=== PATIENT | male | born 1950 | race Caucasian/White ===

== ENCOUNTER 2023-07-27 17:17 | Emergency (ER) | payer MEDICARE, OTHER, SELFPAY ==
[2023-07-27 17:19] VITALS: BP 144/59
[2023-07-27 17:47] LABS: % Basophils 1.3 % (0-2); % Eosinophils 2.6 % (0-6); % Immature Granulocytes 0.4 % (0-0.5); % Lymphocytes 34.3 % (20.5-51.1); % Monocytes 9.2 % (1.7-9.3); % Neutrophils 52.2 % (42.2-75.2); Absolute Basophils 0.1 10^3/uL (0-0.2); Absolute Eosinophils 0.2 10^3/uL (0-0.7); Absolute Lymphocytes 2.4 10^3/uL (1.2-3.4); Absolute Monocytes 0.7 10^3/uL (0.1-0.6); Absolute Neutrophils 3.7 10^3/uL (1.4-6.5); Hematocrit 41.8 % (39.0-52.0); Hemoglobin 15.1 g/dL (13.0-18.0); Mean Corp Hgb Conc. 36.1 g/dL (33.0-37.0); Mean Corpuscular Hgb 32.3 pg (27.0-31.0); Mean Corpuscular Volume 89.5 fL (80.0-94.0); Mean Platelet Volume 10.8 fL (7.4-10.4); Nucleated Red Blood Cells % 0 % (-); Platelet Count 166 10^3/uL (130-400); Red Blood Cell Count 4.67 10^6/uL (4.70-6.10); Red Cell Dist. Width 12.1 % (11.5-14.5)
[2023-07-27 18:03] LABS: ALT (SGPT) 35 U/L (0-50); AST (SGOT) 42 U/L (17-59); Albumin 4.1 g/dl (3.5-5.0); Alkaline Phosphatase 62 U/L (38-126); Blood Urea Nitrogen 14 mg/dl (9-20); Calcium 9.5 mg/dl (8.4-10.2); Carbon Dioxide 23 mmol/L (22-30); Chloride 101 mmol/L (98-107); Glucose 152 mg/dl (70-99); Potassium 4.1 mmol/L (3.5-5.1); Sodium 137 mmol/L (135-145); Total Bilirubin 0.6 mg/dl (0.2-1.3); eGFR > 60.00
[2023-07-27 18:09] LABS: Troponin I < 0.012 ng/ml
--- NOTE | 2023-07-27 20:21 | ED.GENMED ---
History of Present Illness
General
Chief Complaint: Chest Pain
Source: patient
Exam Limitations: none
Time Seen by Provider: 07/27/23 20:00
Nursing documentation reviewed up to this point in time: agreed with
Travel History
Have you had any contact with someone who has COVID-19?: No
Do you have any symptoms of coronavirus? Fever > 100 degrees, chills, cough, shortness of breath, sore throat, loss of taste or smell, muscle aches, or headache?: No
History of Present Illness
History of Present Illness:
Patient with history of hypertension, presents to ED secondary to persistent left-sided chest pain since yesterday afternoon, which started after a long walk. Chest pain described as pressure, with radiation to left shoulder, with shortness of
breath. Denies nausea or vomiting. Denies dizziness. Denies diaphoresis. Denies trauma. Denies back pain. Denies leg pain or swelling. Denies recent travel or surgery. Denies recent illness. Of note, patient has had similar intermittent
chest pain greater than 6 months. Patient was seen by kindergartners helper at [facility] 3 months ago for similar chest pain. At that time, patient received normal stress echocardiogram.
Past History
Past History
ED Past Medical History: Hypercholesterolemia
ED Past Surgical History: Other (eye surgery)
Social History
Tobacco: Non-smoker
Alcohol: None
Drug: None
Living: with family
Review of Systems
Review of Systems
Allergies reviewed?: Yes
All Other Systems: ROS reviewed and negative except as documented in HPI and ROS
Constitutional: Reports no symptoms
EENT: Reports no symptoms
Respiratory: Reports trouble breathing
Cardiac: Reports chest pain
ABD/GI: Reports no symptoms
: Reports no symptoms
Musculoskeletal: Reports no symptoms
Skin: Reports no symptoms
Neurological: Reports no symptoms
Phy Exam
Physical Exam
Physical Exam:
Physical Exam
General: no apparent distress, not acutely ill. afebrile
Head: nc/at. eomi
Neck: supple. no meningeal signs.
Heart: s1/s2 regular rate and rhythm, no murmur. equal radial pulses.
Lungs: no acute respiratory distress. clear bilaterally
Abdomen: normal bowel sounds. not tender.
Neuro: alert and oriented. no focal neurological deficits
Skin: no rash
Psychiatric: well kept. interactive and cooperative
Extremities: no edema. no calf tenderness.
Scores
Heart Score for Chest Pain Patients
STEMI patient?: No
History: Slightly or Non-Suspicious
ECG: Normal
Age: >/= 65 years
Risk Factors: 1 or 2 Risk Factors
Troponin: </= Normal Limit
Heart Score for Chest Pain Patients: 3
Heart Score Risk: 2.5% MACE over next 6 weeks
Course
Orders/Labs/Results
Orders:
Orders
07/27/23 17:35
Electrocardiogram (*1) Urgent
Reason for Study: Chest Pain
EKG- Treatment ONCE
07/27/23 17:36
Complete Blood Count/With Diff Urgent
Comprehensive Metabolic Panel Urgent
Troponin I Urgent
07/27/23 20:21
Nitroglycerin Sublingual [Nitrostat (Sublingual)] 0.4 mg SL NOW STA
CR Chest - 2 Views Urgent
Comment:
Reason For Exam: chest pain
07/27/23 21:27
D-Dimer Urgent
Abnormal Lab Results
07/27/23
17:36
RBC 4.67 L 10^6/uL
(4.70-6.10)
MCH 32.3 H pg
(27.0-31.0)
MPV 10.8 H fL
(7.4-10.4)
Absolute Monos (auto) 0.7 H 10^3/uL
(0.1-0.6)
Glucose 152 H mg/dl
(70-99)
07/27/23 17:36
07/27/23 17:36
Vital Signs
Initial and Last Documented VS:
Initial Vital Signs
Temp Pulse Resp BP Pulse Ox
98.7 F 72 18 144/59 95
07/27/23 17:19 07/27/23 17:19 07/27/23 17:19 07/27/23 17:19 07/27/23 17:19
Last Documented Vital Signs
Temp Pulse Resp BP Pulse Ox
98.6 F 59 14 127/60 99
07/27/23 22:59 07/27/23 22:59 07/27/23 22:59 07/27/23 22:59 07/27/23 22:59
MDM/Problems Addressed
MDM/Problems Addressed:
Pt with complete resolution of CP during observation in ED, along with unremarkable workup, including blood work and EKG, along with CXR. Pt will be discharged home in stable condition, to the care of his spouse, with recommendation to call his
primary kindergartners helper @ [facility] as soon as he wakes up tomorrow. Pt and spouse express understanding at time of discharge.
*EKG
Interpreted by ED Provider?: Yes
EKG Intrepretation Date: 07/27/23
Heart Rate: 69
Rate: normal
Rhythm: sinus
Sibley: normal axis
QRS Pattern: right bundle branch block
*Critical Care Note
Total Time (30-74mins, 75-104mins- exclusive of procedures): Not Applicable
ED Attending Note
-
Portions of this chart may have been created with voice recognition software.� Occasional wrong word or��sound alike� substitutions may have occurred due to the inherent limitations of voice recognition software.
Discharge Plan
Departure
Patient Disposition: Home (Routine Discharge)
Date of Disposition: 07/27/23
Time of Disposition: 22:53
Patient with high blood pressure during this ER visit?: Yes
Condition: Good
Discharge Problem:
Chest pain
Instructions: Chest Pain NON-[employer] Follow Up
Prescriptions:
No Action
lisinopril 10 MG tablet
10 mg PO DAILY
clonazepam 1 MG tablet
2 mg PO DAILY
Patient Comments:
11/07/20 - PT LAST PICKED UP 09/18/20 #90
quetiapine 100 MG tablet
200 mg PO HS
peg 400-propylene glycol (PF) [Systane (PF)] 1 EACH dropperette
1 ea BOTH EYES DAILYPRN PRN (Reason: DRY EYES)
cholecalciferol (vitamin D3) 2,000 UNITS tablet
2,000 units PO DAILY
multivitamin with folic acid [Tab-A-Asia] 1 TABLET tablet
1 tab PO DAILY
turmeric 400 MG capsule
400 mg PO DAILY
cyclobenzaprine 5 mg tablet
5 mg PO HS PRN (Reason: muscle spasm) Qty: 14 0RF
Referrals:
Monica Villela PA-C [Family Provider] -
Activity Restrictions/Additional Instructions:
As discussed, please follow-up with your kindergartners helper as soon as possible for further evaluation and treatment. Please return to ED with worsening symptoms.
Interventions
Interventions:
*Risk Screen - Suicide Last Done: 07/27/23 17:19
*General Assessment Last Done: 07/27/23 17:19
*Neglect/Abuse Screening Last Done: 07/27/23 17:19
ED- Fall Risk Assessment Last Done: 07/27/23 20:34
*ED COVID-19 Vaccine History Last Done: 07/27/23 23:00
*Nursing Disposition Last Done: 07/27/23 23:00
ED- Cardiac Assessment Last Done: 07/27/23 20:34
Discharge Date and Time
Discharge Date/Time: 07/27/23 23:01
[2023-07-27] MEDS: NITROSTAT (SUBLINGUAL) 0.400000000000000022 MG SL (20:28)
[2023-07-27 20:30] VITALS: BMI 34.5
[2023-07-27 21:46] LABS: D-Dimer 0.37 ug/mlFEU (0.00-0.50)
[2023-07-27 22:59] VITALS: BP 127/60
== END 2023-07-27 23:01 | disposition home or self-care (01) ==
LOC: EMR 17:17
PROVIDERS: Emergency Medicine; EMERGENCY PHYSICIAN Emergency Medicine; FAMILY PHYSICIAN Physician Assistant
DX: R07.89 Other chest pain (principal); R06.02 Shortness of breath; I10 Essential (primary) hypertension
CPT/HCPCS: 99285; 71046; 80053; 84484; 85025; 85379; 93005

== ENCOUNTER 2024-12-01 06:48 | Emergency (ER) | payer MEDICARE, OTHER, SELFPAY ==
[2024-12-01 06:50] VITALS: BP 136/62
[2024-12-01 07:42] VITALS: BMI 39.2
--- NOTE | 2024-12-01 08:30 | ED.GENMED ---
History of Present Illness
General
Chief Complaint: Musculo-Skeletal Complaint
Source: patient
Exam Limitations: none
Time Seen by Provider: 12/01/24 07:32
Nursing documentation reviewed up to this point in time: agreed with
History of Present Illness
History of Present Illness:
Patient is a 74-year-old male with past medical history of hypertension hyperlipidemia diabetes on oral agent, gout presents to the ER for evaluation of left ankle pain. Patient injured himself in September and has had intermittent pain since. Patient
reports pain was worse last night and kept him up. He reports mild swelling. No fevers chest pain shortness of breath.
He denies any redness to the area. He denies any fevers.
Past History
Past History
ED Past Medical History: Hypercholesterolemia
ED Past Surgical History: Other (eye surgery)
Social History
Tobacco: Non-smoker
Alcohol: None
Drug: None
Living: with family
Review of Systems
Review of Systems
Allergies reviewed?: Yes
All Other Systems: ROS reviewed and negative except as documented in HPI and ROS
Constitutional: Reports no symptoms
Musculoskeletal: Reports other (left ankle pain )
Skin: Reports no symptoms
Neurological: Reports no symptoms
Psychiatric: Reports no symptoms
Phy Exam
General Physical Exam
General Presentation: no apparent distress
General age: appears stated age
General Skin: warm and dry
General Habitus: normal
General Mental: alert
General Hydration: appears well hydrated
Neurological Exam
Neurological Exam: alert and oriented x3
Musculoskeletal Exam
Musculoskeletal Exam: other (Patient with left lower extremity pulses tender to the left lateral malleolus region mild swelling no erythema able to range ankle, no calf tenderness or leg swelling , tender to light touch to the lateral ankle)
Skin Exam
Skin Exam: normal color and warm/dry
Psychiatric Exam
Psychiatric Exam: normal mood/affect
Course
Orders/Labs/Results
Orders:
Orders
12/01/24 07:13
Ankle, left 3 view CR [CR Ankle - Left Min 3 Views ] Urgent
Comment:
Reason For Exam: pain
12/01/24 08:06
Venous Doppler Lwr Ext Left [US Periph Venous LOWER Ext LT] Urgent
Comment:
Reason For Exam: pain
12/01/24 10:29
Prednisone [Deltasone] 50 mg PO NOW STA
12/01/24 10:43
Complete Blood Count/With Diff Urgent
Comprehensive Metabolic Panel Urgent
Uric Acid Urgent
Abnormal Lab Results
12/01/24
10:43
RBC 4.60 L 10^6/uL
(4.70-6.10)
MCH 31.7 H pg
(27.0-31.0)
MPV 10.7 H fL
(7.4-10.4)
Absolute Monos (auto) 0.7 H 10^3/uL
(0.1-0.6)
Monocytes % 10.2 H %
(1.7-9.3)
Chloride 109 H mmol/L
(98-107)
Glucose 113 H mg/dl
(70-99)
Uric Acid 10.0 H mg/dl
(3.5-8.5)
12/01/24 10:43
12/01/24 10:43
Vital Signs
Initial and Last Documented VS:
Initial Vital Signs
Temp Pulse Resp BP Pulse Ox
98.4 F 78 18 136/62 95
12/01/24 06:50 12/01/24 06:50 12/01/24 06:50 12/01/24 06:50 12/01/24 06:50
Last Documented Vital Signs
Temp Pulse Resp BP Pulse Ox
98.4 F 62 16 149/65 92
12/01/24 06:50 12/01/24 12:00 12/01/24 12:00 12/01/24 12:00 12/01/24 08:54
Tattoo Identifier consulted with Physician
Tattoo Identifier consulted with physician?: Yes
Name of Physician Consulted: Marlon
MDM/Problems Addressed
Differential Diagnosis Includes:
Not limited to sprain strain fracture DVT gout, less likely septic arthritis.
MDM/Problems Addressed:
As documented patient is a 74-year-old male who presents for left ankle pain. He injured his ankle in September however never had it evaluated and has had intermittent pain however complains of worsening pain to the left lateral ankle. He does
complain of mild swelling there is mild swelling on exam however he denies any fever chills there is no redness. Exam not consistent with septic arthritis. He does have a history of gout. X-rays are negative and ultrasounds negative. Uric acid
is mildly elevated. He is awake alert no acute distress is able to bear weight able to use his walker will DC with outpatient follow-up with family doctor. Discussed return any worsening of symptoms.
Chronic conditions affecting care:
gout , history of diabetes will DC on steroids however discussed with patient that this may raise his sugars.
*Critical Care Note
Total Time (30-74mins, 75-104mins- exclusive of procedures): Not Applicable
ED Attending Note
-
Portions of this chart may have been created with voice recognition software.� Occasional wrong word or��sound alike� substitutions may have occurred due to the inherent limitations of voice recognition software.
Discharge Plan
Departure
Patient Disposition: Home (Routine Discharge)
Date of Disposition: 12/01/24
Time of Disposition: 12:19
Patient with high blood pressure during this ER visit?: Yes
Condition: Fair
Covid-19: Not Applicable
Discharge Problem:
Joint pain
Prescriptions:
New
prednisone 50 mg tablet
50 mg PO DAILY Qty: 7 0RF
No Action
clonazepam 1 MG tablet
2 mg PO DAILY
Patient Comments:
11/07/20 - PT LAST PICKED UP 09/18/20 #90
Systane (PF) 1 EACH dropperette
1 ea BOTH EYES DAILYPRN PRN (Reason: DRY EYES)
cholecalciferol (vitamin D3) 2,000 UNITS tablet
2,000 units PO DAILY
multivitamin with folic acid [Tab-A-Asia] 1 TABLET tablet
1 tab PO DAILY
quetiapine [Seroquel] 200 mg Tablet
200 mg PO DAILY
clonazepam 1 mg tablet
1 mg PO HS
amlodipine 10 mg tablet
5 mg PO DAILY
aspirin 81 mg Tablet
81 mg PO DAILY
metformin 500 mg tablet extended release 24 hr
500 mg PO DAILY
escitalopram oxalate [Lexapro] 20 mg Tablet
20 mg PO DAILY
aripiprazole 15 mg tablet
15 mg PO DAILY
Referrals:
Monica Villela PA-C [Family Provider, General]
Activity Restrictions/Additional Instructions:
You were seen here today for joint pain.
There is no evidence of infection. You will be treated for possible gout. First dose of steroids given here in the ER and a prescription was sent to your pharmacy. Keep elevated as much as possible. Please closely follow-up with your family
doctor in the next several days. Steroids may increase your blood sugar and so please have this rechecked by your family doctor in the next 2 days. Return if any worsening of symptoms or increased pain swelling redness fever chills.
Interventions
Interventions:
*Risk Screen - Suicide Last Done: 12/01/24 06:50
*General Assessment Last Done: 12/01/24 06:50
*Neglect/Abuse Screening Last Done: 12/01/24 06:50
*ED- Fall Risk Assessment Last Done: 12/01/24 07:30
*ED COVID-19 Vaccine History Last Done: 12/01/24 07:30
*Nursing Disposition Last Done: 12/01/24 12:42
ED-Musculoskeletal Assessment Last Done: 12/01/24 07:40
Discharge Date and Time
Discharge Date/Time: 12/01/24 12:43
Print Language: FILIPINO
[2024-12-01 08:54] VITALS: BP 134/56
[2024-12-01 10:00] VITALS: BP 156/64
[2024-12-01] MEDS: DELTASONE 50 MG PO (10:35)
[2024-12-01 10:54] LABS: % Basophils 1.6 % (0-2); % Eosinophils 3.6 % (0-6); % Immature Granulocytes 0.1 % (0-0.5); % Lymphocytes 37.3 % (20.5-51.1); % Monocytes 10.2 % (1.7-9.3); % Neutrophils 47.2 % (42.2-75.2); Absolute Basophils 0.1 10^3/uL (0-0.2); Absolute Eosinophils 0.3 10^3/uL (0-0.7); Absolute Lymphocytes 2.6 10^3/uL (1.2-3.4); Absolute Monocytes 0.7 10^3/uL (0.1-0.6); Absolute Neutrophils 3.3 10^3/uL (1.4-6.5); Hematocrit 41.1 % (39.0-52.0); Hemoglobin 14.6 g/dL (13.0-18.0); Mean Corp Hgb Conc. 35.5 g/dL (33.0-37.0); Mean Corpuscular Hgb 31.7 pg (27.0-31.0); Mean Corpuscular Volume 89.3 fL (80.0-94.0); Mean Platelet Volume 10.7 fL (7.4-10.4); Nucleated Red Blood Cells % 0 % (-); Platelet Count 178 10^3/uL (130-400); Red Cell Dist. Width 12.4 % (11.5-14.5)
[2024-12-01 11:00] VITALS: BP 159/67
[2024-12-01 11:21] LABS: ALT (SGPT) 30 U/L (0-50); AST (SGOT) 31 U/L (17-59); Albumin 4.2 g/dl (3.5-5.0); Alkaline Phosphatase 48 U/L (38-126); Blood Urea Nitrogen 15 mg/dl (9-20); Calcium 9.5 mg/dl (8.4-10.2); Carbon Dioxide 25 mmol/L (22-30); Chloride 109 mmol/L (98-107); Estimated Creatinine Clearance 77 ml/min; Glucose 113 mg/dl (70-99); Potassium 3.9 mmol/L (3.5-5.1); Sodium 142 mmol/L (135-145); Total Bilirubin 0.6 mg/dl (0.2-1.3); eGFR > 60.00
[2024-12-01 12:00] VITALS: BP 149/65
== END 2024-12-01 12:43 | disposition home or self-care (01) ==
LOC: EMR 06:48
PROVIDERS: Nurse Practitioner; EMERGENCY PHYSICIAN Student in an Organized Health Care Education/Training Program; FAMILY PHYSICIAN Physician Assistant
DX: M25.572 Pain in left ankle and joints of left foot (principal); I10 Essential (primary) hypertension; E78.00 Pure hypercholesterolemia, unspecified; E11.9 Type 2 diabetes mellitus without complications; M10.9 Gout, unspecified
CPT/HCPCS: 99285; 73610; 80053; 84550; 85025; 93971

== ENCOUNTER → 2025-03-21 09:02 | Outpatient (REF) | payer MEDICARE, OTHER, SELFPAY | LOC: RAD 09:02 | PROVIDERS: ATTENDING PHYSICIAN Internal Medicine Clinical Cardiac Electrophysiology; FAMILY PHYSICIAN Physician Assistant | DX: R07.9 Chest pain, unspecified (principal) | CPT/HCPCS: 75574; Q9967 ==